=== PATIENT | female | born 1995 | race Caucasian/White ===

== ENCOUNTER 2017-04-07 03:00 | Inpatient (IN) | payer OTHER ==
[~2017-04-07] VITALS: Ht 175.3 cm; Wt 117.9 kg
--- NOTE | ~2017-04-07 | PA ---
Unit #: [id number] #: [id number] Patient: CHENCHO BUSTOS [id number] [facility] [address] [place] [address] [id number] MR#: [id number] NAME: CHENCHO BUSTOS ROOM: P180 Age: 21 Sex: F Admission Date: 04/07/2017 : 1995 Date of Assessment: 04/07/2017 Attending Physician: Austyn Atkinson M.D. Admitting Physician: Austyn Atkinson M.D. Primary Care Physician: Generic Doctor Not In System PSYCHIATRIC ASSESSMENT INFORMANT(S) Patient, reliable. [facility]. CHIEF COMPLAINT Recent relapse with heroin use. HISTORY OF PRESENT ILLNESS Ms. Bustos is a 21-year-old woman, who reports that she relapsed using two grams of heroin about three months ago, and uses this on a daily basis. She occasionally stops and has also used illicit benzodiazepines. She stopped her antidepressant medications and felt increasingly hopeless and helpless. She found out that her significant other had been cheating on her while she was . She reported no suicidal ideation, but extreme dysphoria. She was admitted for detox and stabilization. PAST PSYCHIATRIC HISTORY Last admission was in 2016 under the care of Dr. Santillan. She had been taking Zoloft 50 mg daily but has been noncompliant. FAMILY PSYCHIATRIC HISTORY There is a significant family history of chemical dependency issues. SOCIAL HISTORY The patient is unemployed with some college. She is temporarily homeless and has had shoplifting and prostitution charges in the past. She recently was abandoned by the father of her young child. PAST MEDICAL HISTORY No chronic medical problems. MEDICATION HISTORY Please see MAR. ALLERGIES No known medication allergies. SUBSTANCE ABUSE HISTORY As noted above. MENTAL STATUS EXAM Chencho presented as a mildly disheveled woman who appeared older than her stated age. She was cooperative with the examination. Her speech was Unit #: [id number] #: [id number] Patient: CHENCHO BUSTOS spontaneous and easily understood. Musculoskeletal examination was calm. Her mood was anxious and depressed with a congruent affect. She was alert and fully oriented. Her memory and concentration were fair. Her thought processes were goal-directed with no active psychosis. She denies suicidal ideation, intent, or plan but admitted hopelessness, helplessness, and desires to self-mutilate. Her insight and judgment were fair. Her fund of knowledge and abstraction were intact. ASSETS The patient knows local resources and presents voluntarily for treatment. LIABILITIES Include, temporary homelessness, noncompliance, and drug relapse. ADMITTING DIAGNOSES [place] I: Major depression, F33.2. Opiate dependence, F11.23. Benzodiazepine abuse. [place] II: No diagnosis. [place] III: History of hepatitis C. [place] IV: [place] V: PSYCHIATRIC PLAN Chencho was admitted and placed on suicide precautions and the opiate detox protocol. Zoloft 50 mg daily will be restarted for treatment of depression with trazodone as needed for insomnia. Physical examination, and baseline laboratory studies will be ordered and reviewed. She will enroll in dual diagnosis groups and activities. TREATMENT GOALS Resolution of SI, establishment of sobriety, improvement in insight, improvement in coping skills. DISCHARGE PLANNING Follow up with [facility] for mental health and chemical dependence care. ESTIMATED LENGTH OF STAY Five days. Dictated by... Austyn Atkinson M.D. KATELYNN/kendall TD: 04/08/2017 07:29 JOB #: [id number] Unit #: [id number] #: [id number] Patient: CHENCHO BUSTOS PSYCHIATRIC ASSESSMENT Page 1 of 1 X Austyn Atkinson MD X PSYCHIATRIC ASSESSMENT
--- NOTE | ~2017-04-07 | PN ---
Unit #: [id number] #: [id number] Patient: CHENCHO GEE [id number] [facility] [address] [place] [address] [id number] I MR#: [id number] NAME: CHENCHO GEE ROOM: P180 Age: 21 Sex: F Admission Date: 04/07/2017 : 1995 Attending Physician: Austyn Atkinosn M.D. Admitting Physician: Austyn Atkinson M.D. Primary Care Physician: Generic Doctor Not In System [facility] PROGRESS NOTES DATE 04/10/2017 DISCUSSION Chencho said that yesterday was her worst day of detox but around late in the day, she became much better and her detox symptoms resolved. She was able to sleep well last night, and took a shower and got dressed in fresh clothes this morning, and feels much better. She is alert and fully oriented with no psychosis and no suicidal ideation. ASSESSMENT Opiate dependence. PLAN Anticipate discharge tomorrow with followup through community mental health. Dictated by... Katerine Bergman/kendall TD: 04/11/2017 11:18 JOB #: [id number] [facility] PROGRESS NOTES Page 1 of 1 X Austyn Atkinson MD PROGRESS NOTE
--- NOTE | ~2017-04-07 | HP ---
Unit #: [id number] #: [id number] Patient: CHENCHO GEE [id number] [facility] [place] [place] [address] [id number] I MR#: [id number] NAME: CHENCHO GEE ROOM: P180 Age: 21 Sex: F Admission Date: 04/07/2017 : 1995 Attending Physician: Austyn Atkinson M.D. Admitting Physician: Austyn Atkinson M.D. Primary Care Physician: Janessa Doctor Not In System HISTORY AND PHYSICAL HISTORY OF PRESENT ILLNESS Chencho is a 21 year old admitted to [facility] because of her continued drug use. She shoots heroin. PAST MEDICAL HISTORY 1. Long history of opioid abuse to include IV heroin. 2. Morbid obesity. 3. Hepatitis C. PAST SURGICAL HISTORY x1. ALLERGIES No known drug allergies. SOCIAL HISTORY Smokes less than 1 pack per day. Denies alcohol. Admits to a long history of opioid abuse to include IV heroin. FAMILY HISTORY Medically noncontributory. REVIEW OF SYSTEMS CONSTITUTIONAL: No fever or chills. HEENT: Denies any sore throat, ear pain or runny nose. CARDIOVASCULAR: Denies chest pain, irregular heart rhythm or palpitations. CHEST: Denies shortness of breath or cough. No hemoptysis. GASTROINTESTINAL: Denies nausea, vomiting, diarrhea or chronic constipation. ENDOCRINE: Denies history of increased thirst or urination. No recent significant weight loss or gain. GENITOURINARY: Denies dysuria, frequency, or hematuria. SKIN: Denies any rashes. HEMATOLOGIC: Denies history of increased bleeding or bruising. MUSCULOSKELETAL: Denies any hot, swollen joints. No generalized muscle pain. NEUROLOGIC: Denies problems with vision or speech. No frequent, severe headaches. No numbness, tingling or weakness in any extremities. Denies loss of bladder or bowel control. CURRENT MEDICATIONS 1. Detox protocol. 2. Zoloft 50 mg daily. Unit #: [id number] #: [id number] Patient: CHENCHO GEE PHYSICAL EXAMINATION GENERAL: Alert, obese, in no apparent distress. VITAL SIGNS: Blood pressure 115/74, heart rate 80, respirations 16, temperature 98.6. WEIGHT: 260. HEIGHT: 5 feet 9 inches. SKIN: Warm and dry without rash or lesion. HEENT: Normocephalic. TMs not viewed. Oral and nasal passages clear. Conjunctivae clear. PERRLA. EOMs intact. NECK: Supple without lymphadenopathy or thyromegaly. HEART: Regular rate and rhythm without murmur. LUNGS: Clear. ABDOMEN: Soft, nontender. : Not done. EXTREMITIES: No evidence of cyanosis, clubbing or edema. Moves all without focal deficit. NEUROLOGICAL: Grossly within normal limits. Cranial Nerves: II: Visual chaves are intact. III, IV AND : Extraocular movements are intact. Pupils are equal, round and reactive to light. V: Facial sensation is grossly normal. VII: Facial movements and expression are normal. VIII: Auditory acuity grossly intact. IX, X: Uvula is midline. Phonation is normal. XI: Patient shrugs shoulders and turns head normally. XII: Tongue protrudes in the midline. Sensory and Motor Function: Sensory and motor sensation is grossly normal. Motor: moves all extremities well. Coordination: Gait is normal. Deep Tendon Reflexes: Intact. IMPRESSION Psychiatric admission. RECOMMENDATIONS PSYCHIATRIC: Per psychiatrist. MEDICAL: See no contraindication to participate in facility's activities. MEDICAL PROGNOSIS Good. MEDICAL CONDITION Stable. Dictated by... Chayito Hernadez PItaloAItalo-Arthur. for Katerine Stevens/ze TD: 04/07/2017 20:37 JOB #: [id number] Unit #: [id number] #: [id number] Patient: CHENCHO GEE HISTORY AND PHYSICAL Page 1 of 1 X Chayito Hernadez X HISTORY AND PHYSICAL
--- NOTE | ~2017-04-07 | DS ---
Unit #: [id number] #: [id number] Patient: JENIFFER GEE [id number] [facility] [address] [place] [address] [id number] I MR#: [id number] NAME: JENIFFER GEE ROOM: P180 Age: 21 Sex: F Admission Date: 04/07/2017 : 1995 Discharge Date: 04/11/2017 Attending Physician: Austyn Atkinson M.D. Primary Care Physician: Generic Doctor Not In System DISCHARGE SUMMARY REASON FOR ADMISSION Jeniffer is a 21-year-old woman who has been using 2 g of heroin daily for about 3 months. She occasionally uses illicit benzodiazepines. She had become increasingly hopeless and helpless after failing her antidepressant medication and had multiple psychosocial stressors otherwise. She was unable to contract for safety and was admitted for stabilization. DIAGNOSTIC STUDIES LABORATORY DATA: Beta HCG was negative. Liver functions were less than twice normal. HOSPITAL COURSE Patient was admitted and placed on suicide precautions, and the opiate detox protocol. Zoloft 50 mg daily was initiated for treatment of depression and trazodone was provided for insomnia. The patient about 2 days of active detox symptomatology followed by resolution of her symptoms with brightening of her mood, a better affect, and on the date of discharge she was able to contract for safety in the outpatient setting. DISCHARGE DIAGNOSES [place] I: Major depression. Opioid dependence. Benzodiazepine abuse. AX[place] II: No diagnosis. [place] III: Hepatitis C. DISCHARGE INSTRUCTIONS Follow up with [facility] mental health and primary care physician. DISCHARGE MEDICATIONS Zoloft 50 mg daily for depression. CONDITION ON DISCHARGE Improved. PROGNOSIS Fair to good. DIET AND ACTIVITY Per primary care doctor. Unit #: [id number] #: [id number] Patient: JENIFFER GEE Dictated by... Austyn Atkinson M.D. MRH/bzg TD: 04/14/2017 10:00 JOB #: [id number] DISCHARGE SUMMARY Page 1 of 1 X Austyn Atkinson MD X DISCHARGE SUMMARY
--- NOTE | ~2017-04-07 | PN ---
Unit #: [id number] #: [id number] Patient: CHENCHO GEE [id number] [facility] [address] [place] [address] [id number] I MR#: [id number] NAME: CHENCHO GEE ROOM: P180 Age: 21 Sex: F Admission Date: 04/07/2017 : 1995 Attending Physician: Austyn Atkinson M.D. Admitting Physician: Austyn Atkinson M.D. Primary Care Physician: Generic Doctor Not In System [facility] PROGRESS NOTES DATE 04/08/2017 DISCUSSION Chencho is having active withdrawal symptoms this morning including sweating, cramping, and restlessness. She complains that her blood pressure has been too low for her to receive clonidine, although she has received other medications. She also says that Zofran is "ineffective for me." Her mood is irritable with a congruent affect. She continues to report some suicidal ideation but contracts for safety in the hospital. ASSESSMENT 1. Major depression. 2. Opiate dependence. PLAN Continue current medications and detox protocol. Dictated by... Austyn Atkinson M.D. KATELYNN/darrell TD: 04/09/2017 08:24 JOB #: [id number] [facility] PROGRESS NOTES Page 1 of 1 X Austyn Atkinson MD PROGRESS NOTE
--- NOTE | ~2017-04-07 | PN ---
Unit #: [id number] #: [id number] Patient: CHENCHO GEE [id number] [facility] [address] [place] [address] [id number] I MR#: [id number] NAME: CHENCHO GEE ROOM: P180 Age: 21 Sex: F Admission Date: 04/07/2017 : 1995 Attending Physician: Austyn Atkinson M.D. Admitting Physician: Austyn Atkinson M.D. Primary Care Physician: Generic Doctor Not In System [facility] PROGRESS NOTES DATE 04/09/2017 DISCUSSION Chencho is a little bit better this morning and is up attending groups and activities. She continues to have some cramping, sweating, and irritability. She is alert and fully-oriented. Her memory and concentration are fair. Thought processes are goal-directed with no active psychosis. She has discussed getting outpatient care through [facility] with her social insurance analyst. ASSESSMENT Major depression, opiate dependence. PLAN Continue detox protocol and current precautions. Dictated by... Austyn Atkinson M.D. KATELYNN/kendall TD: 04/11/2017 08:53 JOB #: [id number] [facility] PROGRESS NOTES Page 1 of 1 X Austyn Atkinson MD X PROGRESS NOTE
[2017-04-08 09:44] LABS: URINE APPEARANCE CLEAR; URINE BILIRUBIN NEG (NEG); URINE BLOOD NEG (NEG); URINE COLOR YELLOW; URINE GLUCOSE NEG (NEG); URINE KETONE NEG (NEG); URINE LEUKOCYTE ESTERASE NEG (NEG); URINE NITRATE NEG (NEG); URINE PH 6.5 (5-8); URINE PROTEIN NEG (NEG); URINE SPECIFIC GRAVITY 1.016 (1.003-1.035); URINE UROBILINOGEN 0.2 MG/DL (NEG)
[2017-04-08 10:44] LABS: AMPHETAMINE NEG (NEG); BARBITURATES NEG (NEG); BENZODIAZEPINES NEG (NEG); COCAINE NEG (NEG); MARIJUANA NEG (NEG); OPIATES POS (NEG); TRICYCLIC ANTIDEPRESSANTS NEG (NEG); U METHADONE NEG (NEG)
[2017-04-08 12:40] LABS: BASOPHIL% 0.3 % (0-2.5); EOSINOPHIL% 0.3 % (0.0-7.0); HEMATOCRIT 39.6 % (35.0-45.0); LYMPHOCYTE# 1.8 X10e3 (1.0-3.5); LYMPHOCYTE% 24.4 % (17.0-45.0); MEAN CELL VOLUME 78.8 FL (83-96); MEAN CORPUSCULAR HEMOGLOBIN 25.9 PG (28-34); MEAN CORPUSCULAR HGB CONC 32.9 g/dL (30-36); MEAN PLATELET VOLUME 7.8 FL (6.5-11.5); MONOCYTE# 0.3 X10e3 (0-1.0); MONOCYTE% 4.4 % (3.0-12.0); NEUTROPHIL# 5.1 X10e3 (1.5-7.1); NEUTROPHIL% 70.6 % (40-75); PLATELET COUNT 238 X10e3 (140-420); RED BLOOD COUNT 5.03 X10e (3.90-5.30); RED CELL DISTRIBUTION WIDTH 15.9 % (11.0-15.5); WHITE BLOOD COUNT 7.2 X10e3 (4.0-10.5)
[2017-04-08 12:54] LABS: ALBUMIN SERUM 3.7 g/dL (3.5-5.0); BILIRUBIN,TOTAL 0.9 mg/dL (0.2-2.0); BUN/CREATININE RATIO 16.66; CALCIUM SERUM 9.2 mg/dL (8.4-10.2); CREATININE SERUM 0.6 mg/dL (0.6-1.4); DIFF IND NO; GLOM FILT RATE Estimated 128.5 mL/min (>60); POTASSIUM 4.3 mmol/L (3.5-5.1); PROTEIN TOTAL SERUM 7.1 g/dL (6.0-8.3)
== END 2017-04-11 13:35 | DRG 885 ==
LOC: P1E 06:05
PROVIDERS: Psychiatry & Neurology Psychiatry
DX: F33.9 Major depressive disorder, recurrent, unspecified (principal); F11.20 Opioid dependence, uncomplicated; F13.10 Sedative, hypnotic or anxiolytic abuse, uncomplicated; E66.01 Morbid (severe) obesity due to excess calories; F17.210 Nicotine dependence, cigarettes, uncomplicated
CPT/HCPCS: 80053; 80307; 81003; 84703; 85025; 86592